=== PATIENT | male | born 1945 ===

== ENCOUNTER 2018-02-01 09:48 | Outpatient (CLI) | payer OTHER | END 2018-02-01 10:10 | disposition home or self-care (01) | LOC: OFIC 805 09:48 | DX: H91.8X3 Other specified hearing loss, bilateral (principal) ==

== ENCOUNTER 2018-02-08 08:40 | Outpatient (CLI) | payer OTHER ==
[~2018-02-08] VITALS: Ht 172.7 cm; Wt 79.4 kg
== END 2018-02-08 09:00 | disposition home or self-care (01) ==
LOC: OFIC 805 08:40
DX: H90.3 Sensorineural hearing loss, bilateral (principal)

== ENCOUNTER 2018-03-08 11:25 | Outpatient (CLI) | payer OTHER ==
[~2018-03-08] VITALS: Ht 152.4 cm; Wt 77.1 kg
== END 2018-03-08 11:45 | disposition home or self-care (01) ==
LOC: OFIC 805 11:25
DX: H90.3 Sensorineural hearing loss, bilateral (principal)